=== PATIENT | female | born 1990 | race Caucasian/White ===

== ENCOUNTER 2017-08-10 12:08 | Emergency (ER) | payer OTHER ==
[~2017-08-10] VITALS: Wt 136.1 kg
[~2017-08-10 12:08] MED LIST: COREG25 MG PO; COZAAR50 MG PO; DONNATAL1 TAB PO; ERYTHROMYCIN5 MG/G2 OP; K-DUR 20MEQ20 MEQ PO; MOTRIN800 MG PO; NKHM; SEPTRA DS 800 M1 TAB PO; TRAMADOL HCL50 MG PO; VIBRAMYCIN100 MG PO
[2017-08-10 12:33] LABS: BASO % 0.7 % (0.0-1.0); EOS # 0.2 10*3/uL (0.0-0.4); EOS % 3.1 % (1.0-4.0); HEMATOCRIT 39.8 % (37.0-47.0); HEMOGLOBIN 13.1 g/dl (12.0-16.0); LYMPH # 1.4 10*3/uL (1.3-4.4); LYMPH % 24.2 % (27.0-41.0); MEAN CELL VOLUME 81.9 fl (81.0-99.0); MEAN CORPUSCULAR HGB CONC 32.9 g/dl (33.0-37.0); MONO # 0.5 10*3/uL (0.1-1.0); MONO % 8.3 % (3.0-9.0); NEUT # 3.7 10*3/uL (2.3-7.9); NEUT % 63.4 % (47.0-73.0); PLATELET COUNT AUTOMATED 230 10*3/uL (130-400); RED BLOOD COUNT 4.86 10*6/uL (4.10-5.10); RED CELL DISTRI WIDTH 13.8 % (0-14.5); WHITE BLOOD COUNT 5.8 10*3/uL (4.8-10.8)
[2017-08-10 12:42] LABS: ACT PARTIAL THROMBO TIME 27.5 SECONDS (20.8-31.5); INTERNATIONAL NORM RATIO 1.1 (2.0-3.5)
[2017-08-10 12:51] LABS: ALBUMIN 3.6 gm/dl (3.1-4.5); ALKALINE PHOSPHATASE 100 U/L (45-117); BUN 7 mg/dl (7-24); CHLORIDE 104 mmol/L (98-107); CREATININE 0.83 mg/dL (0.55-1.02); MAGNESIUM 2.1 mg/dL (1.5-2.1); POTASSIUM 3.5 mmol/L (3.5-5.1); SGOT/AST 20 IU/L (3-35); SGPT/ALT 31 U/L (12-78); SODIUM 140 mmol/L (136-145); TOTAL PROTEIN 7.9 gm/dL (6.4-8.2)
[2017-08-10 12:52] LABS: TROPONIN I < 0.015 ng/ml (<0.045)
== END 2017-08-10 16:55 | disposition home or self-care (01) ==
LOC: ED 12:08
PROVIDERS: Emergency Medicine
DX: R00.2 Palpitations (principal); R06.02 Shortness of breath

== ENCOUNTER 2024-07-11 17:23 | Emergency (ER) | payer OTHER ==
[~2024-07-11] VITALS: Ht 162.5 cm; Wt 140.6 kg
[2024-07-11] MEDS ORDERED: methylPREDNISolone sod succ 125 MG VIAL IM ONE (18:15)
[2024-07-11 18:25] LABS: BASO # 0.1 10*3/uL (0.0-0.1); BASO % 0.8 % (0.0-1.0); EOS # 0.1 10*3/uL (0.0-0.4); EOS % 1.4 % (1.0-4.0); HEMATOCRIT 36.4 % (37.0-47.0); LYMPH % 15.6 % (27.0-41.0); MEAN CORPUSCULAR HGB 29.6 pg (27.0-31.0); MEAN CORPUSCULAR HGB CONC 33.2 g/dl (33.0-37.0); MEAN PLATELET VOLUME 9.4 fl (9.6-12.3); MONO # 0.6 10*3/uL (0.1-1.0); MONO % 8.8 % (3.0-9.0); NEUT # 4.6 10*3/uL (2.3-7.9); NEUT % 72.9 % (47.0-73.0); PLATELET COUNT AUTOMATED 259 10*3/uL (130-400); RED BLOOD COUNT 4.09 10*6/uL (4.10-5.10); WHITE BLOOD COUNT 6.3 10*3/uL (4.8-10.8)
[2024-07-11 18:44] LABS: BUN 11 mg/dl (9-23); CHLORIDE 108 mmol/L (98-107); POTASSIUM 3.9 mmol/L (3.4-5.1)
[2024-07-11] MEDS ORDERED: PREDNISONE20 M1 PO (20:03)
== END 2024-07-11 20:18 | disposition home or self-care (01) ==
LOC: ED 17:23
PROVIDERS: Nurse Practitioner
DX: M25.461 Effusion, right knee (principal); M54.31 Sciatica, right side; I10 Essential (primary) hypertension; Z98.890 Other specified postprocedural states

== ENCOUNTER 2024-07-15 14:45 | Emergency (ER) | payer OTHER ==
[~2024-07-15] VITALS: Ht 162.5 cm; Wt 140.6 kg
[~2024-07-15 14:45] MED LIST changes: +PREDNISONE20 M1 PO
[2024-07-15 15:17] LABS: BASO % 0.3 % (0.0-1.0); EOS % 0.1 % (1.0-4.0); HEMATOCRIT 37.6 % (37.0-47.0); LYMPH # 2.1 10*3/uL (1.3-4.4); LYMPH % 15.9 % (27.0-41.0); MEAN CELL VOLUME 89.3 fl (81.0-99.0); MEAN CORPUSCULAR HGB 30.2 pg (27.0-31.0); MEAN CORPUSCULAR HGB CONC 33.8 g/dl (33.0-37.0); MEAN PLATELET VOLUME 9.7 fl (9.6-12.3); MONO # 1.4 10*3/uL (0.1-1.0); MONO % 10.7 % (3.0-9.0); NEUT # 9.4 10*3/uL (2.3-7.9); NEUT % 72.5 % (47.0-73.0); PLATELET COUNT AUTOMATED 312 10*3/uL (130-400); RED BLOOD COUNT 4.21 10*6/uL (4.10-5.10); RED CELL DISTRI WIDTH 12.8 % (0-14.5)
[2024-07-15 15:39] LABS: ALKALINE PHOSPHATASE 75 U/L (46-116); BUN 17 mg/dl (9-23); CHLORIDE 104 mmol/L (98-107); CPK 230 U/L (34-171); POTASSIUM 2.6 mmol/L (3.4-5.1); SGPT/ALT 37 U/L (5-49); TOTAL PROTEIN 7.6 gm/dL (6.0-8.0)
[2024-07-15 15:41] LABS: ETHYL ALCOHOL < 3.0 mg/dl (<3)
[2024-07-15 17:22] LABS: BILIRUBIN Negative (Negative); BLOOD 2+ (Negative); CLARITY Clear (Clear); COLOR Yellow (Yellow); GLUCOSE Negative (Negative); KETONE Negative (Negative); LEUKO ESTERASE Negative (Negative); NITRITE Negative (Negative); UROBILINOGEN 0.2 E.U./dl (0.0-1.0)
[2024-07-15 17:29] LABS: URINE AMPHETAMINES Negative (1000ng/ml); URINE BARBITURATES Negative (200ng/ml); URINE BENZODIAZEPINES Negative (200ng/ml); URINE CANNABINOIDS (THC) Positive (50ng/ml); URINE COCAINE Negative (300ng/ml); URINE METHADONE Negative (300ng/ml); URINE OPIATES Negative (300ng/ml); URINE PHENCYCLIDINE Negative (25ng/ml)
[2024-07-15 17:44] LABS: BACTERIA 1+; RBC 21-30 rbc/hpf (0-2)
[2024-07-15] MEDS ORDERED: POTASSIUM CHLORIDE 20 MEQ TAB PO ONE (17:55)
== END 2024-07-15 19:25 | disposition home or self-care (01) ==
LOC: ED 14:45
PROVIDERS: Internal Medicine
DX: F43.23 Adjustment disorder with mixed anxiety and depressed mood (principal); I10 Essential (primary) hypertension; F41.9 Anxiety disorder, unspecified; F32.A Depression, unspecified; Z98.890 Other specified postprocedural states; Z79.899 Other long term (current) drug therapy

== ENCOUNTER 2025-06-18 23:27 | Emergency (ER) | payer BC ==
[~2025-06-18] VITALS: Ht 162.5 cm; Wt 124.7 kg
[2025-06-18] MEDS ORDERED: AMLODIPINE BESY10 MG PO (23:33)
[2025-06-18] MEDS ORDERED: METOPROLOL SUCC50 M1 PO (23:33)
[2025-06-18] MEDS ORDERED: Sulfamethoxazole/Trimethopri 1 TAB TAB PO ONE (23:40)
[2025-06-18] MEDS ORDERED: SEPTDS PO (23:43)
== END 2025-06-18 23:49 | disposition home or self-care (01) ==
LOC: ED 23:27
DX: L02.415 Cutaneous abscess of right lower limb (principal); Z96.22 Myringotomy tube(s) status

== ENCOUNTER → 2025-07-08 | Outpatient (CLI) | payer BC ==
[~2025-07-08] MED LIST changes: +AMLODIPINE BESY10 MG PO; +METOPROLOL SUCC50 M1 PO; +SEPTDS PO
[2025-07-08 14:09] LABS: MEAN CELL VOLUME 87.6 fl (81.0-99.0); MEAN CORPUSCULAR HGB 29.3 pg (27.0-31.0); MEAN PLATELET VOLUME 9.9 fl (9.6-12.3); NUCLEATED RED BLOOD CELL 0.0 % (0.0-0.0); NUCLEATED RED BLOOD CELL 0.0 10*3/uL (0.0-0.0); PLATELET COUNT AUTOMATED 251.0 10*3/uL (130-400); RED CELL DISTRI WIDTH 12.2 % (0-14.5)
[2025-07-08 14:30] LABS: BUN 11 mg/dl (9-23); LDL CHOLESTEROL 70 mg/dL (9-159); SGPT/ALT 19 U/L (5-49)
[2025-07-08 14:46] LABS: VITAMIN D, 25-HYDROXY 16.6 ng/mL (30-100)
== END | disposition home or self-care (01) ==
LOC: LAB 13:48
PROVIDERS: ATTEND Family Medicine
DX: M25.561 Pain in right knee (principal); E55.9 Vitamin D deficiency, unspecified; E78.5 Hyperlipidemia, unspecified; R53.83 Other fatigue; D64.9 Anemia, unspecified